=== PATIENT | female | born 1975 | race Caucasian/White ===

== ENCOUNTER 2016-08-09 23:36 | Emergency (ER) | payer OTHER ==
--- NOTE | ~2016-08-09 | EKG ---
PATIENT: DEE MELENDEZ UNIT #: [id number] Ventricular Rate: 89 BPM Atrial Rate: 89 BPM P-R Interval: 134 ms QRS Duration: 74 ms Q-T Interval: 344 ms QTC Calculation(Bezet): 418 ms P [place]: 67 degrees Calculated R [place]: 78 degrees Calculated T [place]: 73 degrees Diagnosis Line: Normal sinus rhythm Diagnosis Line: Normal ECG Diagnosis Line: No previous ECGs available Diagnosis Line: Confirmed by BIMAL RECINOS MD ([id number]) on 08/13/2016 Diagnosis Line: 10:32:10 PM INTERPRETING MD: JORJE CORTEZ
--- NOTE | ~2016-08-09 | CR72 ---
[facility] A Service of [facility] & [facility] RADIOLOGY TEXT RESULTS PATIENT: DEE MELENDEZ LOCATION: CFTX : 75 UNIT #: [id number] AGE: [address]: Ki Scott MD SEX: F ORDER DR: [id number] [facility] [address] [place], [place] [address] [id number] E MR#: [id number] Acc #: [id number] NAME: DEE MELENDEZ : 1975 SEX: F STUDY DATE/TIME: 08/09/2016 23:43 UNIT: [facility] ROOM: STUDY DESCRIPTION: CR Chest Single View Portable Attending Physician: Ki Scott M.D. Ordering Physician: Ki Scott M.D. Primary Care Physician: Primary Care Physician No MEDICAL IMAGING REPORT This report is preliminary unless electronic signature is present EXAM Portable chest, 08/09/2016 HISTORY 41-year-old female with chest pain and shortness of air beginning tonight. COMPARISON Chest, 09/05/2012 FINDINGS Frontal chest demonstrates clear lungs. No pleural effusion or pneumothorax. Heart size and mediastinum are normal. Pulmonary vasculature normal. IMPRESSION No acute cardiopulmonary findings. Dictated by... Lamni Narayan M.D. THIS IS AN ELECTRONICALLY VERIFIED REPORT Lamin Narayan M.D. at 08/10/2016 11:27 PM Anish TD: 08/10/2016 13:09 JOB #: [id number] MEDICAL IMAGING REPORT Page 1 of 1 COPY
[~2016-08-09 23:36] MED LIST: ALBUTEROL17 GM INH; BENZONATATE PO; LORTAB 7.51 TAB PO; PREDNISONE PO; PRILOSEC20 M1 PO; ZITHROMAX PO
== END 2016-08-10 01:40 | disposition home or self-care (01) ==
LOC: CED 23:36
DX: F11.10 Opioid abuse, uncomplicated (principal); S20.219A Contusion of unspecified front wall of thorax, initial encounter; E11.9 Type 2 diabetes mellitus without complications; X58.XXXA Exposure to other specified factors, initial encounter
CPT/HCPCS: 71010; 93005; 99283